=== PATIENT | male | born 1940 | race Caucasian/White ===

== ENCOUNTER → 2016-07-22 | Outpatient (CLI) | payer MEDICARE | LOC: MW.CHUR 09:42 | PROVIDERS: ATTEND Urology | DX: N40.0 Benign prostatic hyperplasia without lower urinary tract symptoms (principal); R35.1 Nocturia | CPT/HCPCS: 36415; 84153; G0463 ==

== ENCOUNTER 2017-02-12 06:55 | Day surgery (SDC) | payer MEDICARE ==
[~2017-02-12 06:55] MED LIST: Lactated Ringers 1,000 ML IV SCH; Sodium Chloride 0.9% 10 ML Syringe FLUSH PRN; Sodium Chloride 0.9% 2.5 ML Syringe FLUSH PRN; ceFAZolin 2 GM in Premix Bag 1 BAG IV ONE
[2017-02-12] MEDS ORDERED: Ondansetron 4 MG/2 ML SDV ONE (07:14)
[2017-02-12] MEDS ORDERED: fentaNYL 100 MCG/2 ML SDV ONE (07:15)
[2017-02-12] MEDS ORDERED: Propofol 200 MG/20 ML SDV ONE (07:15)
[2017-02-12] MEDS ORDERED: Midazolam 1 MG/ML 2 ML SDV ONE (07:15)
[2017-02-12] MEDS ORDERED: Ketorolac 30 MG/ML SDV ONE (07:16)
[2017-02-12] MEDS ORDERED: Dexamethasone 4 MG/ML 5 ML MDV ONE (07:16)
[2017-02-12] MEDS ORDERED: Rocuronium 10 MG/ML 10 ML Syringe ONE (07:16)
[2017-02-12] MEDS ORDERED: Bupivacaine 0.25% 10 ML SDV ONE (07:19)
[2017-02-12] MEDS ORDERED: Sugammadex Sodium 200 MG/2 ML VIAL ONE (07:24)
--- NOTE | 2017-02-12 07:36 | PCM.PREANE ---
Preanesthetic Assessment - Anesthesia/Transfusion/Family Hx Anesthesia History: Prior Anesthesia Without Reaction Family History of Anesthesia Reaction: No Transfusion History: No Prior Transfusion(s) Intubation History: Unknown - Review of Systems General: No Symptoms Pulmonary: No Symptoms Cardiovascular: No Symptoms Gastrointestinal: No Symptoms Neurological: No Symptoms Other: Reports: None - Physical Assessment Height: 1.78 m Weight: 81.193 kg ASA Class: 2 Mental Status: Alert & Oriented x3 Airway Class: Mallampati = 2 Dentition: Reports: Normal Dentition, Buchanan(s) (x2 upper front teeth) Thyro-Mental Finger Breadths: 3 Mouth Opening Finger Breadths: 3 ROM/Head Extension: Limited/Partial Lungs: Clear to Auscultation, Normal Respiratory Effort Cardiovascular: Regular Rate, Regular Rhythm - Allergies Allergies/Adverse Reactions: Allergies Allergy/AdvReac Type Severity Reaction Status Date / Time No Known Allergies Allergy Verified 02/10/17 11:08 - Blood Blood Available: No - Anesthesia Plan Pre-Op Medication Ordered: None - Acknowledgements Anesthesia Type Planned: General Anesthesia Pt an Appropriate Candidate for the Planned Anesthesia: Yes Alternatives and Risks of Anesthesia Discussed w Pt/Guardian: Yes Pt/Guardian Understands and Agrees with Anesthesia Plan: Yes PreAnesthesia Questionnaire HEENT History: Reports: Cataract, Hard of Hearing Other HEENT History: uses reading glasses, VIEJAS in left ear Cardiovascular History: Reports: High Cholesterol Respiratory History: Reports: None Gastrointestinal History: Reports: GERD, Hiatal Hernia Other Gastrointestinal History: esophageal stricture s/p dialation by Dr. Roy in [place]. No problems since. H/o bowel obstruction due to adhesions last year - laparotomy with lysis of adhesions Genitourinary History: Reports: BPH Musculoskeletal History: Reports: Other (See Below) Other Musculoskeletal History: some back spasms Neurological History: Reports: None Psychiatric History: Reports: None, Bipolar Endocrine/Metabolic History: Reports: None Hematologic History: Reports: None Immunologic History: Reports: None Oncologic (Cancer) History: Reports: None Dermatologic History: Reports: Other (See Below) Other Dermatologic History: current rash on chest - Infectious Disease History Infectious Disease History: Reports: Chicken Pox - Past Surgical History HEENT Surgical History: Reports: Cataract Surgery GI Surgical History: Reports: Hernia, Inguinal (right with mesh '98- recurrence) , Lysis of Adhesions Other GI Surgeries/Procedures: Exploratory Laparotomy for SBO, Lysis of adhesions done Neurological Surgical History: Reports: Lumbar Spine Other Neurological Surgeries/Procedures: lower back x2, last one in august- much better since - SUBSTANCE USE Smoking Status *Q: Never Smoker Second Hand Smoke Exposure: No Recreational Drug Use History: No - HOME MEDS Home Medications: Home Meds Aspirin [Adult Low Dose Aspirin EC] 81 mg PO DAILY 02/10/17 [History] Cyclobenzaprine HCl 5 mg PO TID PRN 02/10/17 [History] Multivitamin [Multiple Vitamins] 1 tab PO DAILY 02/10/17 [History] Omeprazole 40 mg PO DAILY 02/10/17 [History] Simvastatin [Zocor] 20 mg PO DAILY 02/10/17 [History] Tamsulosin HCl 0.4 mg PO DAILY 02/10/17 [History] Vardenafil HCl [Levitra] 20 mg PO DAILY PRN 02/10/17 [History] - CURRENT (IN HOUSE) MEDS Current Meds: Current Medications Lactated Ringer's (Ringers, Lactated) 1,000 mls @ 125 mls/hr IV ASDIRECTED VIKKI Last Admin: 02/12/17 07:25 Dose: 125 mls/hr Sodium Chloride (Saline Flush) 10 ml FLUSH ASDIRECTED PRN PRN Reason: Keep Vein Open Sodium Chloride (Saline Flush) 2.5 ml FLUSH ASDIRECTED PRN PRN Reason: Keep Vein Open Discontinued Medications Bupivacaine HCl (Sensorcaine-Mpf 0.25%) Confirm Administered Dose 20 ml .ROUTE .STK-MED ONE Stop: 02/12/17 07:20 Dexamethasone (Dexamethasone) Confirm Administered Dose 20 mg .ROUTE .STK-MED ONE Stop: 02/12/17 07:17 Fentanyl (Sublimaze) Confirm Administered Dose 100 mcg .ROUTE .STK-MED ONE Stop: 02/12/17 07:16 Glycopyrrolate () Confirm Administered Dose 1 mg .ROUTE .STK-MED ONE Stop: 02/12/17 07:17 Cefazolin Sodium/Dextrose 2 gm (/ Premix) 50 mls @ 100 mls/hr IV ONETIME ONE Stop: 02/09/17 09:46 Acetaminophen (Ofirmev) Confirm Administered Dose 100 mls @ as directed IV .STK- MED ONE Stop: 02/12/17 07:25 Ketorolac Tromethamine (Toradol) Confirm Administered Dose 30 mg .ROUTE .STK- MED ONE Stop: 02/12/17 07:17 Lidocaine HCl (Xylocaine-Mpf 1%) Confirm Administered Dose 5 ml .ROUTE .STK-MED ONE Stop: 02/12/17 07:17 Midazolam HCl (Versed 1 Mg/Ml) Confirm Administered Dose 2 mg .ROUTE .STK-MED ONE Stop: 02/12/17 07:16 Ondansetron HCl (Zofran) Confirm Administered Dose 4 mg .ROUTE .STK-MED ONE Stop: 02/12/17 07:15 Propofol (Diprivan 20 Ml) Confirm Administered Dose 200 mg .ROUTE .STK-MED ONE Stop: 02/12/17 07:16 Rocuronium [place] ([place]em[place]) Confirm Administered Dose 100 mg .ROUTE .STK-MED ONE Stop: 02/12/17 07:17
[2017-02-12] MEDS ORDERED: Sodium Chloride 0.9% 20 ML ONE ×2 (07:48→10:08)
[2017-02-12] MEDS ORDERED: ceFAZolin 1 GM Vial ONE ×4 (07:48→10:09)
[2017-02-12] MEDS ORDERED: ePHEDrine 50 MG/ML SDV ONE (08:46)
[2017-02-12] MEDS ORDERED: Morphine 10 MG/ML Syringe ONE (08:53)
[2017-02-12] MEDS ORDERED: fentaNYL 100 MCG/2 ML SDV IVPUSH PRN (09:30)
--- NOTE | 2017-02-12 09:32 | PCM.OPNOTE ---
- General Post-Op/Procedure Note Date of Surgery/Procedure: 02/12/17 Operative Procedure(s): Repair right recurrent inguinal hernia Findings: No evidence of a previous mesh repair. Most likely repaired primarily. Large direct and indirect inguinal hernia. Pre Op Diagnosis: Recurrent inguinal hernia Post-Op Diagnosis: Recurrent direct and indirect inguinal hernia Anesthesia Technique: General ET Tube Primary Surgeon: Dary Ramsey Condition: Good
--- NOTE | 2017-02-12 10:11 | PCM.POSTAN ---
POST ANESTHESIA ASSESSMENT - MENTAL STATUS Mental Status: Alert, Oriented - RESPIRATORY Respiratory Status: Respiratory Rate WNL, Airway Patent, O2 Saturation Stable - CARDIOVASCULAR CV Status: Pulse Rate WNL, Blood Pressure Stable - GASTROINTESTINAL GI Status: No Symptoms - PAIN Pain Score: 6 - POST OP HYDRATION Hydration Status: Adequate & Stable - OBSERVATIONS Free Text/Narrative:: no anesthesia problems
[2017-02-12] MEDS ORDERED: Acetaminophen/oxyCODONE 325-5 MG Tab PO PRN (10:30)
[2017-02-12 13:18] VITALS: BP 113/73
--- NOTE | 2017-02-12 18:20 | OR ---
SURGEON: COOKIE MELCHOR MD DATE OF PROCEDURE: 02/12/2017 PREOPERATIVE DIAGNOSIS: Recurrent right inguinal hernia. POSTOPERATIVE DIAGNOSIS: Recurrent right inguinal hernia, indirect and direct. PROCEDURE PERFORMED: Right inguinal hernia repair with mesh. PRIVACY ATTORNEY: Dr. Eamon Jacinto. ANESTHESIA: General endotracheal anesthesia. FLUIDS: See anesthesia record. ESTIMATED BLOOD LOSS: 10 mL. FINDINGS: Indirect and direct inguinal hernia. No evidence of previous mesh used. COMPLICATIONS: None. INDICATIONS: The patient is a 76-year-old male, who presents with a recurrent right inguinal hernia repair. This was previously repaired many years ago. The patient thought it was with mesh. Three months ago, the patient noticed a bulge in his groin and it is fully getting larger. A CT showed evidence of a right inguinal hernia containing small bowel. The patient and I discussed repair of this hernia. We will perform it open. We discussed the procedure expected perioperative course and risks including bleeding, infection, or damage to surrounding structures. The patient verbalized understanding and wishes to proceed. PROCEDURE IN DETAIL: The patient was brought into the operating room and placed on the OR table in supine position. A time-out was completed verifying the patient's name, age, date of , allergies, and procedure to be performed. General endotracheal anesthesia was induced. The abdomen and groin were prepped and draped in the usual standard fashion. I anesthetized the area above the inguinal ligament with 0.5% Marcaine plain. An oblique incision was made 2 fingerbreadths above the inguinal ligament. Cautery was used to dissect down to the level of the external oblique fibers. I noted scar tissue to be along this area. Using a [place] scissors, I opened the external oblique fibers down to the external ring. Flaps were then created underneath the external oblique fibers around the hernia sac and testicular vessels. This was somewhat difficult due to the previous surgery. Metzenbaum scissors were used to lyse the dense adhesions. I was able to then bluntly dissect out the hernia sac and cord structures. This was looped with a [place]. The patient was noted to have both a direct and indirect hernia. There was no evidence of previous mesh use. There were some old non- absorbable sutures along the inguinal ligament. The indirect hernia sac was dissected free of the cord structures to the level of the internal ring. It was then opened and I palpated inside the ring. No small bowel was noted within the sac. A 2-0 silk suture was used to create a pursestring suture around the base of the hernia sac and ligate it. Cautery was used to dissect the hernia sac off distally. The hernia sac was then sent to pathology. The cut end of the hernia sac was hemostatic and allowed to retract back into the abdomen. Extra-large plug and patch was brought in place. Extra-large plug was placed within the internal ring and sutured in place with 0 Ethibond suture. A mesh patch was then placed along the inguinal floor. It was sutured to the pubic tubercle medially and interrupted sutures were placed along the inguinal shelf. The superior edge of the mesh was secured to the transversalis fascia in interrupted fashion. The tails of the mesh were brought around the cord structures and secured. The defect in the mesh around the cord structures was large enough to accept just the tip of my finger. The wound was then irrigated. The external oblique fascia was closed with a running 3-0 Vicryl suture. The skin was closed with 4-0 Monocryl suture. Steri-Strips and sterile dressings were applied. The patient tolerated the procedure well and was taken to PACU in stable condition. JEREMY WEATHERS /[id number] ERIC
== END 2017-02-12 12:45 | disposition home or self-care (01) ==
LOC: MW.SDS 06:55
PROVIDERS: ATTEND Surgery
DX: K40.91 Unilateral inguinal hernia, without obstruction or gangrene, recurrent (principal); M43.17 Spondylolisthesis, lumbosacral region; D64.9 Anemia, unspecified; F31.9 Bipolar disorder, unspecified; N40.0 Benign prostatic hyperplasia without lower urinary tract symptoms; N52.9 Male erectile dysfunction, unspecified; E78.00 Pure hypercholesterolemia, unspecified; M47.26 Other spondylosis with radiculopathy, lumbar region; K21.9 Gastro-esophageal reflux disease without esophagitis; Z79.82 Long term (current) use of aspirin; Z79.899 Other long term (current) drug therapy; Z98.49 Cataract extraction status, unspecified eye; Z98.890 Other specified postprocedural states
CPT/HCPCS: 49520; A9270; C1781; C9399; J0690; J1100; J1885; J2250; J2270; J2405; J3010; J7120; 00830; 88302; J2704

== ENCOUNTER 2020-01-27 05:45 | Inpatient (IN) | payer MEDICARE, OTHER ==
[2020-01-27] MEDS ORDERED: Sodium Chloride 0.9% 2.5 ML Syringe FLUSH PRN ×2 (06:12→08:03)
[2020-01-27] MEDS ORDERED: Sodium Chloride 0.9% 10 ML Syringe FLUSH PRN (06:12)
--- NOTE | 2020-01-27 06:12 | EDM.PDOC ---
ED HPI GENERAL MEDICAL PROBLEM - General Chief Complaint: Fever Stated Complaint: AMB Time Seen by Provider: 01/27/20 05:55 - History of Present Illness INITIAL COMMENTS - FREE TEXT/NARRATIVE: History of present illness: [] Patient is usually ambulatory fairly well began to get weak and fatigued 6 days ago according to him and the . It is progressed where he takes slow shuffling steps and she says he is unsteady. For the last 4 days he has had a gradually increasing fever as high as 1027. The patient stable enough that she assist him to ambulate him because he is so weak she brought him to the emergency room today. The patient has no appetite. He is drinking plenty of fluid according to her. Does not have any change in mental status. Of note the patient has a respiratory rate of 22 and a fever on arrival but does not meet sepsis criteria because he does not have a third finding including he does not have a change in mental status. He says he had a COVID-19 test Friday which is 3 days ago which came back negative. Review of systems: As per history of present illness and below otherwise all systems reviewed and negative. Past medical history: As per history of present illness and as reviewed below otherwise noncontributory. Surgical history: As per history of present illness and as reviewed below otherwise noncontributory. Social history: No reported history of drug or alcohol abuse. Family history: As per history of present illness and as reviewed below otherwise noncontributory. Physical exam: Constitutional - well developed, well-nourished and in no acute distress HEENT - normocephalic, no evidence of trauma - external nose and mouth normal - no mass in neck and no JVD - mucosae moist EYES - full EOM, PERRL, no icterus - no evidence of inflammation, injection, or drainage Respiratory - no respiratory distress, equal bilateral expansion, lungs clear to auscultation and no abnormal lung sounds Cardiovascular - Regular Rhythm with S1 and S2 appreciated and no murmur, gallop or rub. GI - abdomen soft without distension or organomegaly - normal bowel sounds - no guard or rebound Musculoskeletal no gross deformity of long bones or joints - no tenderness, swelling or edema Neurologic - Alert and oriented times four - CN II-XII grossly intact - motor sensory and coordination symmetrically normal Psychiatric - appropriate mood and affect with normal thought content Hematologic - No petechiae or purpura - mucosa appropriate color and sclera not pale - normal nail bed color and refill Integument - no rash or evidence of trauma - normal turgor Diagnostics: [] Therapeutics: [] Impression: [] Plan: [] Definitive disposition and diagnosis as appropriate pending reevaluation and review of above. - Related Data Allergies Allergy/AdvReac Type Severity Reaction Status Date / Time No Known Allergies Allergy Verified 01/27/20 05:54 Home Meds: Home Meds Aspirin [Adult Low Dose Aspirin EC] 81 mg PO DAILY 02/10/17 [History] Cyclobenzaprine HCl 5 mg PO TID PRN 02/10/17 [History] Multivitamin [Multiple Vitamins] 1 tab PO DAILY 02/10/17 [History] Omeprazole 40 mg PO DAILY 02/10/17 [History] Simvastatin [Zocor] 20 mg PO DAILY 02/10/17 [History] Tamsulosin HCl 0.4 mg PO DAILY 02/10/17 [History] Vardenafil HCl [Levitra] 20 mg PO DAILY PRN 02/10/17 [History] Past Medical History HEENT History: Reports: Cataract Other HEENT History: uses reading glasses, [place] in left ear Cardiovascular History: Reports: High Cholesterol Respiratory History: Reports: None Gastrointestinal History: Reports: GERD Other Gastrointestinal History: Bowel obstruction Genitourinary History: Reports: BPH Musculoskeletal History: Reports: Back Pain, Chronic Other Musculoskeletal History: some back spasms Neurological History: Reports: None Psychiatric History: Reports: None, Bipolar Endocrine/Metabolic History: Reports: None Hematologic History: Reports: None Immunologic History: Reports: None Oncologic (Cancer) History: Reports: None Dermatologic History: Reports: None Other Dermatologic History: current rash on chest - Infectious Disease History Infectious Disease History: Reports: Chicken Pox - Past Surgical History Head Surgeries/Procedures: Reports: None HEENT Surgical History: Reports: Cataract Surgery, Tonsillectomy GI Surgical History: Reports: Hernia Repair/Other Neurological Surgical History: Reports: Lumbar Spine Other Neurological Surgeries/Procedures: lower back x2, last one in august- much better since Social & Family History - Family History Family Medical History: Noncontributory HEENT: Reports: Cataract Cardiac: Reports: Other (See Below) Other Cardiac Family History: valve replacement Respiratory: Reports: None GI: Reports: None : Reports: None OBGYN: Reports: Musculoskeletal: Reports: None Neurological: Reports: Parkinson's Psychiatric: Reports: None Endocrine/Metabolic: Reports: None Hematologic: Reports: None Oncologic: Reports: Colon - Tobacco Use Smoking Status *Q: Never Smoker - Recreational Drug Use Recreational Drug Use: No - Living Situation & Occupation Living situation: Reports: , with Spouse Occupation: Retired ED ROS GENERAL - Review of Systems Review Of Systems: Comprehensive ROS is negative, except as noted in HPI. ED EXAM, GENERAL - Physical Exam Exam: See Below Free Text/Narrative:: My physical exam as in the HPI EKG INTERPRETATION EKG Interpretation Comments: EKG done 01/27/2020 at 6:19 AM and being dictated at 6:57 AM. Sinus rhythm with a heart rate of 60 of 86 NE interval 147 axis -26 QT intervals 433 there are atrial premature complexes. There is left ventricular hypertrophy. This is compared to 12/18/2015 and is no significant difference. Impression no obvious injury Course - Vital Signs Text/Narrative:: 7:30 AM I discussed this case with Dr. hendrix and he agreed to admit the patient as an inpatient. Last Recorded V/S: Last Vital Signs Temp 100.6 F 01/27/20 05:55 Pulse 93 01/27/20 05:55 Resp 22 H 01/27/20 05:55 BP 147/82 H 01/27/20 07:09 Pulse Ox 93 L 01/27/20 05:55 - Orders/Labs/Meds Orders: Active Orders 24 hr Category Date Time Status EKG Documentation Completion [RC] AM Care 01/27/20 06:12 Active Abdomen 1V Flat [CR] Stat Exams 01/27/20 06:15 Taken Chest 1V Frontal [CR] Stat Exams 01/27/20 06:12 Taken CULTURE BLOOD [BC] Stat Lab 01/27/20 05:50 Received CULTURE BLOOD [BC] Stat Lab 01/27/20 06:40 Received UA W/MILAGROS RFLX IF INDICATED [URIN] Stat Lab 01/27/20 06:14 Ordered Sodium Chloride 0.9% [Saline Flush] Med 01/27/20 06:12 Active 10 ml FLUSH ASDIRECTED PRN Sodium Chloride 0.9% [Saline Flush] Med 01/27/20 06:12 Active 2.5 ml FLUSH ASDIRECTED PRN cefTRIAXone [Rocephin in Dextrose,Iso-Osm 1 GM/50 ML] 1 Med 01/27/20 07:12 Active gm Premix Bag 1 bag IV ONETIME Blood Culture x2 Reflex Set [OM.PC] Stat Oth 01/27/20 06:14 Ordered Saline Lock Insert [OM.PC] Stat Oth 01/27/20 06:12 Ordered Medication Orders Ceftriaxone Sodium/Dextrose 1 (gm/ Premix) 50 mls @ 100 mls/hr IV ONETIME ONE Stop: 01/27/20 07:41 Sodium Chloride (Saline Flush) 10 ml FLUSH ASDIRECTED PRN PRN Reason: Keep Vein Open Sodium Chloride (Saline Flush) 2.5 ml FLUSH ASDIRECTED PRN PRN Reason: Keep Vein Open Labs: Laboratory Tests 01/27/20 01/27/20 01/27/20 Range/Units 05:50 05:50 05:50 WBC 7.10 (4.0-11.0) K/uL RBC 3.67 L (4.50-5.90) M/uL Hgb 11.1 L (13.0-17.0) g/dL Hct 34.6 L (38.0-50.0) % MCV 94.3 (80.0-98.0) fL MCH 30.2 (27.0-32.0) pg MCHC 32.1 (31.0-37.0) g/dL RDW Std Deviation 48.8 (28.0-62.0) fl RDW Coeff of Gillian 14 (11.0-15.0) % Plt Count 141 L (150-400) K/uL MPV 9.50 (7.40-12.00) fL Neut % (Auto) 84.0 H (48.0-80.0) % Lymph % (Auto) 7.9 L (16.0-40.0) % [place] % (Auto) 8.0 (0.0-15.0) % Eos % (Auto) 0.0 (0.0-7.0) % Baso % (Auto) 0.1 (0.0-1.5) % Neut # (Auto) 6.0 H (1.4-5.7) K/uL Lymph # (Auto) 0.6 (0.6-2.4) K/uL [place] # (Auto) 0.6 (0.0-0.8) K/uL Eos # (Auto) 0.0 (0.0-0.7) K/uL Baso # (Auto) 0.0 (0.0-0.1) K/uL Nucleated RBC % 0.0 /100WBC Nucleated RBCs # 0 K/uL Lactate 0.9 (0.20-2.00) mmol/L Sodium 137 (136-148) mmol/L Potassium 4.1 (3.5-5.1) mmol/L Chloride 101 (98-107) mmol/L Carbon Dioxide 27.5 (21.0-32.0) mmol/L BUN 35 H (7.0-18.0) mg/dL Creatinine 1.6 H (0.8-1.3) mg/dL Est Cr Clr Drug Dosing 38.02 mL/min Estimated GFR (MDRD) 41.8 ml/min Glucose 151 H (74-106) mg/dL Calcium 8.6 (8.5-10.1) mg/dL Magnesium 2.1 (1.8-2.4) mg/dL Total Bilirubin 0.4 (0.2-1.0) mg/dL AST 34 (15-37) IU/L ALT 29 (14-63) IU/L Alkaline Phosphatase 61 (46-116) U/L Troponin I 0.053 (0.000-0.056) ng/mL Total Protein 7.0 (6.4-8.2) g/dL Albumin 3.3 L (3.4-5.0) g/dL Globulin 3.7 (2.6-4.0) g/dL Albumin/Globulin Ratio 0.9 (0.9-1.6) SARS-CoV-2 RNA (KIMBERLY) (NEGATIVE) 01/27/20 Range/Units 06:30 WBC (4.0-11.0) K/uL RBC (4.50-5.90) M/uL Hgb (13.0-17.0) g/dL Hct (38.0-50.0) % MCV (80.0-98.0) fL MCH (27.0-32.0) pg MCHC (31.0-37.0) g/dL RDW Std Deviation (28.0-62.0) fl RDW Coeff of Gillian (11.0-15.0) % Plt Count (150-400) K/uL MPV (7.40-12.00) fL Neut % (Auto) (48.0-80.0) % Lymph % (Auto) (16.0-40.0) % [place] % (Auto) (0.0-15.0) % Eos % (Auto) (0.0-7.0) % Baso % (Auto) (0.0-1.5) % Neut # (Auto) (1.4-5.7) K/uL Lymph # (Auto) (0.6-2.4) K/uL [place] # (Auto) (0.0-0.8) K/uL Eos # (Auto) (0.0-0.7) K/uL Baso # (Auto) (0.0-0.1) K/uL Nucleated RBC % /100WBC Nucleated RBCs # K/uL Lactate (0.20-2.00) mmol/L Sodium (136-148) mmol/L Potassium (3.5-5.1) mmol/L Chloride (98-107) mmol/L Carbon Dioxide (21.0-32.0) mmol/L BUN (7.0-18.0) mg/dL Creatinine (0.8-1.3) mg/dL Est Cr Clr Drug Dosing mL/min Estimated GFR (MDRD) ml/min Glucose (74-106) mg/dL Calcium (8.5-10.1) mg/dL Magnesium (1.8-2.4) mg/dL Total Bilirubin (0.2-1.0) mg/dL AST (15-37) IU/L ALT (14-63) IU/L Alkaline Phosphatase (46-116) U/L Troponin I (0.000-0.056) ng/mL Total Protein (6.4-8.2) g/dL Albumin (3.4-5.0) g/dL Globulin (2.6-4.0) g/dL Albumin/Globulin Ratio (0.9-1.6) SARS-CoV-2 RNA (KIMBERLY) NEGATIVE (NEGATIVE) Meds: Medications Generic Name Dose Route Start Last Admin Trade Name Freq PRN Reason Stop Dose Admin Ceftriaxone Sodium/Dextrose 1 50 mls @ 100 mls/hr 01/27/20 07:12 gm/ Premix IV 01/27/20 07:41 ONETIME ONE Sodium Chloride 10 ml 01/27/20 06:12 Saline Flush FLUSH ASDIRECTED PRN Keep Vein Open Sodium Chloride 2.5 ml 01/27/20 06:12 Saline Flush FLUSH ASDIRECTED PRN Keep Vein Open Departure - Departure Time of Disposition: 07:32 Disposition: Admitted As Inpatient 65 Condition: Good Clinical Impression: Right lower lobe pneumonia, Fatigue, Weakness - Discharge Information Referrals: Cristian Zavaleta MD [Primary Care Provider] - Forms: ED Department Discharge Sepsis Event Note (ED) - Evaluation Sepsis Screening Result: No Definite Risk - Focused Exam Vital Signs: Vital Signs Temp Pulse Resp BP Pulse Ox 01/27/20 07:09 147/82 H 01/27/20 06:39 156/83 H 01/27/20 05:55 100.6 F 93 22 H 162/75 H 93 L - My Orders Last 24 Hours: My Active Orders 01/27/20 05:50 CULTURE BLOOD [BC] Stat 01/27/20 06:12 EKG Documentation Completion [RC] AM Chest 1V Frontal [CR] Stat Sodium Chloride 0.9% [Saline Flush] 10 ml FLUSH ASDIRECTED PRN Sodium Chloride 0.9% [Saline Flush] 2.5 ml FLUSH ASDIRECTED PRN Saline Lock Insert [OM.PC] Stat 01/27/20 06:14 UA W/MILAGROS RFLX IF INDICATED [URIN] Stat Blood Culture x2 Reflex Set [OM.PC] Stat 01/27/20 06:15 Abdomen 1V Flat [CR] Stat 01/27/20 06:40 CULTURE BLOOD [BC] Stat 01/27/20 07:12 cefTRIAXone [Rocephin in Dextrose,Iso-Osm 1 GM/50 ML] 1 gm Premix Bag 1 bag IV ONETIME - Assessment/Plan Last 24 Hours: My Active Orders 01/27/20 05:50 CULTURE BLOOD [BC] Stat 01/27/20 06:12 EKG Documentation Completion [RC] AM Chest 1V Frontal [CR] Stat Sodium Chloride 0.9% [Saline Flush] 10 ml FLUSH ASDIRECTED PRN Sodium Chloride 0.9% [Saline Flush] 2.5 ml FLUSH ASDIRECTED PRN Saline Lock Insert [OM.PC] Stat 01/27/20 06:14 UA W/MILAGROS RFLX IF INDICATED [URIN] Stat Blood Culture x2 Reflex Set [OM.PC] Stat 01/27/20 06:15 Abdomen 1V Flat [CR] Stat 01/27/20 06:40 CULTURE BLOOD [BC] Stat 01/27/20 07:12 cefTRIAXone [Rocephin in Dextrose,Iso-Osm 1 GM/50 ML] 1 gm Premix Bag 1 bag IV ONETIME
[2020-01-27 06:44] LABS: CARBON DIOXIDE,CO2 27.5 mmol/L (21.0-32.0); POTASSIUM,K 4.1 mmol/L (3.5-5.1)
[2020-01-27] MEDS ORDERED: cefTRIAXone 1 GM in Premix Bag 1 BAG IV ONE (07:12)
--- NOTE | 2020-01-27 07:37 | CR ---
Indication: Fever Technique: Chest 1 view Comparison: None Findings/Impression: Cardiovascular and mediastinum: Heart size and vasculature are normal in caliber and appearance. Lungs and pleural space: There is elevation of the right diaphragm with adjacent linear opacities in the right lung base. These linear opacities could represent chronic compressive atelectasis. However, it is difficult to exclude pneumonia in this location. Remainder of the lungs and pleural spaces are clear. No pneumothorax. Bones and soft tissues: No acute findings. Dictated by Pramod Heaton MD @ Jan 27 2020 7:30AM Signed by Dr. Pramod Heaton @ Jan 27 2020 7:36AM
--- NOTE | 2020-01-27 07:42 | CR ---
Indication: Abdominal distention. History of small-bowel obstruction. Technique: Abdomen 3 view Comparison: December 18, 2015 Findings/Impression: Bowel: Moderate amount of stool in the distal colon. Minimal gaseous distention of the remainder of the colon. Few central small bowel loops are minimally distended with air. No ezekiel obstructive pattern. Soft tissues: No sign of free air. No sign of soft tissue mass. No suspicious calcifications. Bones: Unremarkable for age. Dictated by Pramod Heaton MD @ Jan 27 2020 7:36AM Signed by Dr. Pramod Heaton @ Jan 27 2020 7:39AM
[2020-01-27] MEDS ORDERED: Ondansetron 4 MG/2 ML SDV IVPUSH PRN (08:03)
[2020-01-27] MEDS ORDERED: Docusate Sodium 100 MG Cap PO PRN (08:03)
--- NOTE | 2020-01-27 08:06 | PCM.HP.2 ---
H&P History of Present Illness - General Date of Service: 01/27/20 Admit Problem/Dx: Admission Diagnosis/Problem Admission Diagnosis/Problem Right lower lobe pneumonia Source of Information: Patient History Limitations: Reports: No Limitations - History of Present Illness Initial Comments - Free Text/Narative: This 79-year-old male with PMH of HLD, ataxia, BPH presented to the ED with concerns of fever chills and weakness that started last Friday. He reports that he went in and saw his primary care Dr. Zavaleta on Friday and was tested for COVID. And given hydroxychloroquine as preventative disease. COVID testing came back negative. But he continued to have fevers chills and weakness continued to progress. He has poor appetite and feels dehydrated. He reports he is having constipation no diarrhea or black or bloody bowel movements. Reports that urinary frequency has increased to 3-4 times overnight. He denies any burning with urination or any rectal pain or pressure. He denies chest pain or shortness of breath no cough. He denies any abdominal pain. No focal neurological deficits. He denies any tobacco use recreational drug use or alcohol use. He reports that he just saw Dr. Wilson for BPH follow-up and everything was normal at that time. In the ER no leukocytosis was noted hemoglobin 11.1 platelet count 141,000, slight AK I noted with BUN 35 CR 1.6, which is elevated from baseline. X-ray showed possible linear atelectasis or opacities concerning for possible pneumonia abdominal x-ray shows increased stool in mild distention of the colon. No obvious bowel obstruction. He was treated with Rocephin. Vital signs in ER were noted for some tachypnea mild elevation in temperature 100.6 F. He will be admitted inpatient for CAP. PCP Dr. Zavaleta 0 Pain Score (Numeric/FACES): 0 - Related Data Allergies/Adverse Reactions: Allergies Allergy/AdvReac Type Severity Reaction Status Date / Time No Known Allergies Allergy Verified 01/27/20 08:55 Home Medications: Home Meds Aspirin [Adult Low Dose Aspirin EC] 81 mg PO DAILY 02/10/17 [History] Multivitamin [Multiple Vitamins] 1 tab PO DAILY 02/10/17 [History] Omeprazole 40 mg PO DAILY 02/10/17 [History] Simvastatin [Zocor] 20 mg PO BEDTIME 02/10/17 [History] Hydroxychloroquine [Plaquenil] 200 mg PO BID 01/27/20 [History] Past Medical History HEENT History: Reports: Cataract Other HEENT History: uses reading glasses, [place] in left ear Cardiovascular History: Reports: High Cholesterol Respiratory History: Reports: None Gastrointestinal History: Reports: GERD Other Gastrointestinal History: Bowel obstruction Genitourinary History: Reports: BPH Musculoskeletal History: Reports: Back Pain, Chronic Other Musculoskeletal History: some back spasms Neurological History: Reports: None Psychiatric History: Reports: None, Bipolar Endocrine/Metabolic History: Reports: None Hematologic History: Reports: None Immunologic History: Reports: None Oncologic (Cancer) History: Reports: None Dermatologic History: Reports: None Other Dermatologic History: current rash on chest - Infectious Disease History Infectious Disease History: Reports: Chicken Pox - Past Surgical History Head Surgeries/Procedures: Reports: None HEENT Surgical History: Reports: Cataract Surgery, Tonsillectomy GI Surgical History: Reports: Hernia Repair/Other Neurological Surgical History: Reports: Lumbar Spine Other Neurological Surgeries/Procedures: lower back x2, last one in august- much b nithya since Social & Family History - Family History Family Medical History: Noncontributory HEENT: Reports: Cataract Cardiac: Reports: Other (See Below) Other Cardiac Family History: valve replacement Respiratory: Reports: None GI: Reports: None : Reports: None OBGYN: Reports: Musculoskeletal: Reports: None Neurological: Reports: Parkinson's Psychiatric: Reports: None Endocrine/Metabolic: Reports: None Hematologic: Reports: None Oncologic: Reports: Colon - Tobacco Use Smoking Status *Q: Never Smoker - Recreational Drug Use Recreational Drug Use: No - Living Situation & Occupation Living situation: Reports: , with Spouse Occupation: Retired H&P Review of Systems - Review of Systems: Review Of Systems: See Below General: Reports: Fever, Chills, Malaise, Weakness, Fatigue, Decreased Appetite HEENT: Reports: No Symptoms. Denies: Headaches, Sinus Congestion, Visual Changes Pulmonary: Reports: No Symptoms. Denies: Shortness of Breath, Wheezing, Cough Cardiovascular: Reports: No Symptoms. Denies: Chest Pain, Dyspnea on Exertion, Syncope Gastrointestinal: Reports: Constipation. Denies: Abdominal Pain Genitourinary: Reports: Frequency, Urgency. Denies: Dysuria Musculoskeletal: Reports: No Symptoms Skin: Reports: No Symptoms Psychiatric: Reports: No Symptoms Neurological: Reports: No Symptoms Hematologic/Lymphatic: Reports: No Symptoms Immunologic: Reports: No Symptoms Exam - Exam Exam: See Below - Vital Signs Vital Signs: Last Vital Signs Temp 99.9 F 01/27/20 07:40 Pulse 83 01/27/20 07:40 Resp 20 01/27/20 07:40 BP 167/81 H 01/27/20 07:40 Pulse Ox 94 L 01/27/20 07:40 Weight: 73.482 kg - Exam General: Alert, Oriented, Cooperative, Other (appears flushed in cheeks and shivering) HEENT: Conjunctiva Clear, Posterior Pharynx Clear. No: Mucosa Moist & [place] (dry) Lungs: Clear to Auscultation, Normal Respiratory Effort Cardiovascular: Regular Rate, Regular Rhythm, Normal S1, Normal S2 GI/Abdominal Exam: Normal Bowel Sounds, Soft, Non-Tender Extremities: Normal Inspection, Normal Range of Motion, Non-Tender, No Pedal Edema Neuro Extensive - Mental Status: Alert, Oriented x3 Neuro Extensive - Motor, Sensory, Reflexes: CN II-XII Intact Psychiatric: Alert, Normal Affect, Normal Mood - Patient Data Lab Results Last 24 hrs: Laboratory Results - last 24 hr 01/27/20 01/27/20 01/27/20 Range/Units 05:50 05:50 05:50 WBC 7.10 (4.0-11.0) K/uL RBC 3.67 L (4.50-5.90) M/uL Hgb 11.1 L (13.0-17.0) g/dL Hct 34.6 L (38.0-50.0) % MCV 94.3 (80.0-98.0) fL MCH 30.2 (27.0-32.0) pg MCHC 32.1 (31.0-37.0) g/dL RDW Std Deviation 48.8 (28.0-62.0) fl RDW Coeff of Gillian 14 (11.0-15.0) % Plt Count 141 L (150-400) K/uL MPV 9.50 (7.40-12.00) fL Neut % (Auto) 84.0 H (48.0-80.0) % Lymph % (Auto) 7.9 L (16.0-40.0) % [place] % (Auto) 8.0 (0.0-15.0) % Eos % (Auto) 0.0 (0.0-7.0) % Baso % (Auto) 0.1 (0.0-1.5) % Neut # (Auto) 6.0 H (1.4-5.7) K/uL Lymph # (Auto) 0.6 (0.6-2.4) K/uL [place] # (Auto) 0.6 (0.0-0.8) K/uL Eos # (Auto) 0.0 (0.0-0.7) K/uL Baso # (Auto) 0.0 (0.0-0.1) K/uL Nucleated RBC % 0.0 /100WBC Nucleated RBCs # 0 K/uL Lactate 0.9 (0.20-2.00) mmol/L Sodium 137 (136-148) mmol/L Potassium 4.1 (3.5-5.1) mmol/L Chloride 101 (98-107) mmol/L Carbon Dioxide 27.5 (21.0-32.0) mmol/L BUN 35 H (7.0-18.0) mg/dL Creatinine 1.6 H (0.8-1.3) mg/dL Est Cr Clr Drug Dosing 38.02 mL/min Estimated GFR (MDRD) 41.8 ml/min Glucose 151 H (74-106) mg/dL Calcium 8.6 (8.5-10.1) mg/dL Magnesium 2.1 (1.8-2.4) mg/dL Total Bilirubin 0.4 (0.2-1.0) mg/dL AST 34 (15-37) IU/L ALT 29 (14-63) IU/L Alkaline Phosphatase 61 (46-116) U/L Troponin I 0.053 (0.000-0.056) ng/mL Total Protein 7.0 (6.4-8.2) g/dL Albumin 3.3 L (3.4-5.0) g/dL Globulin 3.7 (2.6-4.0) g/dL Albumin/Globulin Ratio 0.9 (0.9-1.6) SARS-CoV-2 RNA (KIMBERLY) (NEGATIVE) 01/27/20 Range/Units 06:30 WBC (4.0-11.0) K/uL RBC (4.50-5.90) M/uL Hgb (13.0-17.0) g/dL Hct (38.0-50.0) % MCV (80.0-98.0) fL MCH (27.0-32.0) pg MCHC (31.0-37.0) g/dL RDW Std Deviation (28.0-62.0) fl RDW Coeff of Gillian (11.0-15.0) % Plt Count (150-400) K/uL MPV (7.40-12.00) fL Neut % (Auto) (48.0-80.0) % Lymph % (Auto) (16.0-40.0) % [place] % (Auto) (0.0-15.0) % Eos % (Auto) (0.0-7.0) % Baso % (Auto) (0.0-1.5) % Neut # (Auto) (1.4-5.7) K/uL Lymph # (Auto) (0.6-2.4) K/uL [place] # (Auto) (0.0-0.8) K/uL Eos # (Auto) (0.0-0.7) K/uL Baso # (Auto) (0.0-0.1) K/uL Nucleated RBC % /100WBC Nucleated RBCs # K/uL Lactate (0.20-2.00) mmol/L Sodium (136-148) mmol/L Potassium (3.5-5.1) mmol/L Chloride (98-107) mmol/L Carbon Dioxide (21.0-32.0) mmol/L BUN (7.0-18.0) mg/dL Creatinine (0.8-1.3) mg/dL Est Cr Clr Drug Dosing mL/min Estimated GFR (MDRD) ml/min Glucose (74-106) mg/dL Calcium (8.5-10.1) mg/dL Magnesium (1.8-2.4) mg/dL Total Bilirubin (0.2-1.0) mg/dL AST (15-37) IU/L ALT (14-63) IU/L Alkaline Phosphatase (46-116) U/L Troponin I (0.000-0.056) ng/mL Total Protein (6.4-8.2) g/dL Albumin (3.4-5.0) g/dL Globulin (2.6-4.0) g/dL Albumin/Globulin Ratio (0.9-1.6) SARS-CoV-2 RNA (KIM[place]) NEGATIVE (NEGATIVE) Result Diagrams: 01/27/20 05:50 01/27/20 05:50 Sepsis Event Note - Evaluation Sepsis Screening Result: No Definite Risk - Focused Exam Vital Signs: Vital Signs Temp Pulse Resp BP Pulse Ox 01/27/20 07:40 99.9 F 83 20 167/81 H 94 L 01/27/20 07:09 147/82 H 01/27/20 06:39 156/83 H 01/27/20 05:55 100.6 F 93 22 H 162/75 H 93 L - Problem List (1) BPH (benign prostatic hyperplasia) SNOMED Code(s): 192873721 ICD Code: N40.0 - BENIGN PROSTATIC HYPERPLASIA WITHOUT LOWER URINRY TRACT SYMP Status: Acute Current Visit: Yes (2) Acute prostatitis SNOMED Code(s): 58858485 ICD Code: N41.0 - ACUTE PROSTATITIS Status: Suspected Current Visit: Yes (3) Right lower lobe pneumonia SNOMED Code(s): 128708566 ICD Code: J18.9 - PNEUMONIA, UNSPECIFIED ORGANISM Status: Acute Current Visit: Yes (4) Weakness SNOMED Code(s): 08164436 ICD Code: R53.1 - WEAKNESS Status: Acute Current Visit: Yes (5) Chronic back pain SNOMED Code(s): 101846738 ICD Code: M54.9 - DORSALGIA, UNSPECIFIED; G89.29 - OTHER CHRONIC PAIN Status: Chronic Current Visit: No Qualifiers: Back pain location: back pain in unspecified location Back pain laterality: unspecified Qualified Code(s): M54.9 - Dorsalgia, unspecified; G89.29 - Other chronic pain (6) GERD (gastroesophageal reflux disease) SNOMED Code(s): 582030865 ICD Code: K21.9 - GASTRO-ESOPHAGEAL REFLUX DISEASE WITHOUT ESOPHAGITIS Status: Chronic Current Visit: No Problem List Initiated/Reviewed/Updated: Yes Orders Last 24hrs: Active Orders 24 hr Category Date Time Status Admission Status [Patient Status] [ADT] Stat ADT 01/27/20 07:30 Active Intake and Output [RC] QSHIFT Care 01/27/20 08:03 Ordered Oxygen Therapy [RC] PRN Care 01/27/20 08:03 Ordered Up With Assistance [RC] ASDIRECTED Care 01/27/20 08:03 Ordered VTE/DVT Education [RC] PER UNIT ROUTINE Care 01/27/20 08:03 Ordered Vital Signs [RC] Q4H Care 01/27/20 08:03 Ordered BASIC METABOLIC PANEL,BMP [CHEM] AM Lab 01/28/20 05:11 Ordered BASIC METABOLIC PANEL,BMP [CHEM] AM Lab 01/29/20 05:11 Ordered BASIC METABOLIC PANEL,BMP [CHEM] AM Lab 01/30/20 05:11 Ordered CBC WITH AUTO DIFF [HEME] AM Lab 01/28/20 05:11 Ordered CBC WITH AUTO DIFF [HEME] AM Lab 01/29/20 05:11 Ordered CBC WITH AUTO DIFF [HEME] AM Lab 01/30/20 05:11 Ordered CULTURE BLOOD [BC] Stat Lab 01/27/20 05:50 Received CULTURE BLOOD [BC] Stat Lab 01/27/20 06:40 Received MAGNESIUM [CHEM] AM Lab 01/28/20 05:11 Ordered MAGNESIUM [CHEM] AM Lab 01/29/20 05:11 Ordered MAGNESIUM [CHEM] AM Lab 01/30/20 05:11 Ordered UA W/MILAGROS RFLX IF INDICATED [URIN] Stat Lab 01/27/20 06:14 Ordered Acetaminophen [TylenoL] Med 01/27/20 08:03 Ordered 650 mg PO Q4H PRN Azithromycin [Zithromax] Med 01/28/20 08:15 Ordered 500 mg PO Q24H Azithromycin [Zithromax] 500 mg Med 01/27/20 08:15 Ordered Sodium Chloride 0.9% [Normal Saline (AdvBag)] 250 ml IV ONETIME Docusate Sodium [Colace] Med 01/27/20 08:03 Ordered 100 mg PO BID PRN Heparin Sodium Med 01/27/20 08:15 Ordered 5,000 units SUBCUT Q8H Ondansetron [Zofran] Med 01/27/20 08:03 Ordered 4 mg IVPUSH Q4H PRN Sodium Chloride 0.9% [Normal Saline] 1,000 ml Med 01/27/20 08:15 Ordered IV Q10H Sodium Chloride 0.9% [Saline Flush] Med 01/27/20 06:12 Stop Req 10 ml FLUSH ASDIRECTED PRN Sodium Chloride 0.9% [Saline Flush] Med 01/27/20 06:12 Stop Req 2.5 ml FLUSH ASDIRECTED PRN Sodium Chloride 0.9% [Saline Flush] Med 01/27/20 08:03 Ordered 2.5 ml FLUSH ASDIRECTED PRN cefTRIAXone [Rocephin in Dextrose,Iso-Osm 1 GM/50 ML] 1 Med 01/28/20 07:00 Ordered gm Premix Bag 1 bag IV Q24H Blood Culture x2 Reflex Set [OM.PC] Stat Oth 01/27/20 06:14 Ordered Saline Lock Insert [OM.PC] Routine Oth 01/27/20 08:03 Ordered Medication Orders Acetaminophen (Tylenol) 650 mg PO Q4H PRN PRN Reason: Pain (Mild 1-3)/fever Azithromycin (Zithromax) 500 mg PO Q24H VIKKI Docusate Sodium (Colace) 100 mg PO BID PRN PRN Reason: Constipation Heparin Sodium (Porcine) (Heparin Sodium) 5,000 units SUBCUT Q8H VIKKI Azithromycin 500 mg/ Sodium (Chloride) 250 mls @ 250 mls/hr IV ONETIME VIKKI Sodium Chloride (Normal Saline) 1,000 mls @ 100 mls/hr IV Q10H VIKKI Ceftriaxone Sodium/Dextrose 1 (gm/ Premix) 50 mls @ 100 mls/hr IV Q24H VIKKI Ondansetron HCl (Zofran) 4 mg IVPUSH Q4H PRN PRN Reason: Nausea Sodium Chloride (Saline Flush) 2.5 ml FLUSH ASDIRECTED PRN PRN Reason: Keep Vein Open Assessment/Plan Comment:: This 79-year-old male admitted with CAP and possible acute prostatitis 1. CAP - We will change antibiotics to Levaquin IV - Start IV fluids normal saline at 100 mls/hr - Blood cultures are pending - Encourage IS - Oxygen PRN - CT Chest obtained which revealed R lobe pneumonia, continue Levaquin. - Abdominal CT negative, mildly enlarged prostate. Head CT obtained due to tremors on transfer to CT. He remained conscious so unlikely seizure activity. Has history of ataxia. 2. KRISTIN - IV fluids and monitor renal function in a.m. - Avoid nephrotoxic medications - [place] placed in ED due to inability to urinate. VTE prophylaxis: Heparin CODE STATUS: Full code Dispo: 2 to 3 days
[2020-01-27] MEDS ORDERED: Azithromycin 500 MG in Sodium Chloride 0.9% 250 ML IV SCH (08:15)
[2020-01-27] MEDS ORDERED: FLU Vacc QV2020-21(65YR UP)/PF 240 MCG/0.7 ML Syringe IM ONE (09:00)
[2020-01-27] MEDS: Sodium Chloride 0.9% 1,000 ML IV SCH ×2 (09:12→23:37)
[2020-01-27] MEDS: Levofloxacin/Dextrose 5%-Water 750 MG in Premix Bag 1 BAG IV SCH (09:21)
[2020-01-27] MEDS: Heparin Sodium 5,000 Units/ML Vial SUBCUT SCH ×3 (09:23→23:37)
[2020-01-27] MEDS ORDERED: Bisacodyl 10 MG Supp RECTAL ONE (12:28)
--- NOTE | 2020-01-27 12:51 | CT ---
INDICATION: Tremors appearance abnormal motor findings. Possible seizure COMPARISON: None TECHNIQUE: CT examination of the head was performed as axial sections without intravenous contrast. Images were obtained from the vertex of the skull through the skull base. Please note that all CT scans at this facility use dose modulation, iterative reconstruction, and/or weight-based dosing when appropriate to reduce radiation dose to as low as reasonably achievable. FINDINGS: The brain shows no sign of mass lesion, mass effect, hemorrhage, or edema. There are involutional changes. There is moderate cortical atrophy and there is moderate white matter disease. There is no hydrocephalus. The visualized portions of the orbits are normal in appearance. The osseous structures are normal in appearance with no sign of abnormality in the skull base or calvarium. IMPRESSION: Involutional changes. No acute-appearing findings. Please note that all CT scans at this facility use dose modulation, iterative reconstruction, and/or weight-based dosing when appropriate to reduce radiation dose to as low as reasonably achievable. Dictated by Sami Mojica MD @ Jan 27 2020 12:48PM Signed by Dr. Sami Mojica @ Jan 27 2020 12:50PM
--- NOTE | 2020-01-27 13:00 | CT ---
INDICATION: Fever COMPARISON: No prior chest abdomen or pelvis CTs available for comparison TECHNIQUE: CT examination of the chest, abdomen and pelvis was performed without intravenous contrast. Thin section axial images were obtained from the thoracic inlet through the pubic symphysis. Oral contrast was not administered. Sagittal and coronal reformat image was performed Please note that all CT scans at this facility use dose modulation, iterative reconstruction, and/or weight-based dosing when appropriate to reduce radiation dose to as low as reasonably achievable. TECHNICAL NOTE: LIMITED DUE TO MOTION AND LACK OF CONTRAST. FINDINGS: CHEST: The heart size is top normal. There are atherosclerotic vascular calcifications and valvular calcifications. No visible adenopathy or significant pericardial effusion. Large hiatal hernia. Consolidation of the medial segment of the right middle lobe consistent with pneumonia. Minimal opacities at both posterior bases likely atelectasis. Trace right pleural fluid. No pneumothorax. ABDOMEN AND PELVIS: LIVER/BILIARY SYSTEM:Limited evaluation but no solid-appearing mass or biliary ductal dilatation. 1 centimeters cyst in the left lobe. Normal appearing gallbladder. ADRENALS: No definite focal mass KIDNEYS, URETERS and BLADDER:Bilateral and symmetric perinephric stranding. No visible mass, calculus, hydronephrosis or bladder abnormality. The stranding is likely chronic. SPLEEN:Normal non-contrast appearance. PANCREAS: Markedly atrophic RETROPERITONEUM and MESENTERY: There is no mass, adenopathy or aortic aneurysm. Atherosclerosis. GASTROINTESTINAL SYSTEM: There is no evidence of diverticulitis, colitis, mechanical obstruction, or appendicitis. The small bowel as visualized appears normal.Significant fecal retention without mechanical obstruction, specially rectosigmoid. Small bowel appears normal. No visible acute inflammatory process of bowel. PELVIS: No visible free fluid or adenopathy. Enlarged prostate. OSSEOUS STRUCTURES and ABDOMINAL WALL: Demineralization and degenerative change without fracture or destructive process. Small fat containing left inguinal hernia. OTHER: No free fluid or free air. IMPRESSION: 1. CHEST: Right middle lobe pneumonia. 2. ABDOMEN AND PELVIS: Limited examination but no acute finding that would explain fever. Urine incidental findings regarding the abdomen and pelvis as discussed in the body of the report. Please note that all CT scans at this facility use dose modulation, iterative reconstruction, and/or weight-based dosing when appropriate to reduce radiation dose to as low as reasonably achievable. Dictated by Sami Mojica MD @ Jan 27 2020 12:58PM Signed by Dr. Sami Mojica @ Jan 27 2020 12:59PM
[2020-01-27] MEDS: Acetaminophen 325 MG Tab PO PRN (21:17)
[2020-01-28] MEDS: Acetaminophen 325 MG Tab PO PRN (06:09)
[2020-01-28] MEDS: Sodium Chloride 0.9% 1,000 ML IV SCH ×2 (06:09→11:51)
[2020-01-28 06:33] LABS: CARBON DIOXIDE,CO2 25.3 mmol/L (21.0-32.0)
[2020-01-28] MEDS ORDERED: cefTRIAXone 1 GM in Premix Bag 1 BAG IV SCH (07:00)
[2020-01-28] MEDS ORDERED: Azithromycin 250 MG Tab PO SCH (08:15)
[2020-01-28] MEDS ORDERED: Bisacodyl 10 MG Supp RECTAL PRN (08:36)
[2020-01-28] MEDS: Heparin Sodium 5,000 Units/ML Vial SUBCUT SCH ×2 (08:59→17:05)
--- NOTE | 2020-01-28 13:43 | PCM.PN ---
- General Info Date of Service: 01/28/20 Admission Dx/Problem (Free Text): Admission Diagnosis/Problem Admission Diagnosis/Problem Right lower lobe pneumonia Subjective Update: Feeling better today, still having fevers. But overall improved. No chest pain no cough or sputum production. Eating well and up sitting chair for breakfast. Functional Status: Reports: Pain Controlled, Tolerating Diet, Ambulating, Urinating - Review of Systems General: Reports: No Symptoms. Denies: Weakness, Fatigue HEENT: Reports: No Symptoms Cardiovascular: Reports: No Symptoms. Denies: Chest Pain Gastrointestinal: Reports: No Symptoms. Denies: Abdominal Pain, Nausea, Vomiting Genitourinary: Reports: No Symptoms. Denies: Dysuria, Frequency Musculoskeletal: Reports: No Symptoms Skin: Reports: No Symptoms Neurological: Reports: No Symptoms Psychiatric: Reports: No Symptoms - Patient Data Vitals - Most Recent: Last Vital Signs Temp 97.6 F 01/28/20 08:58 Pulse 69 01/28/20 08:58 Resp 14 01/28/20 08:58 BP 120/60 01/28/20 08:58 Pulse Ox 96 01/28/20 08:58 Weight - Most Recent: 73.482 kg I&O - Last 24 Hours: Intake & Output 01/27/20 01/28/20 01/28/20 22:59 06:59 14:59 Intake Total 750 Output Total 650 Balance 100 Lab Results Last 24 Hours: Laboratory Results - last 24 hr 01/28/20 01/28/20 01/28/20 Range/Units 05:25 05:25 09:35 WBC 7.82 (4.0-11.0) K/uL RBC 3.66 L (4.50-5.90) M/uL Hgb 10.9 L (13.0-17.0) g/dL Hct 34.0 L (38.0-50.0) % MCV 92.9 (80.0-98.0) fL MCH 29.8 (27.0-32.0) pg MCHC 32.1 (31.0-37.0) g/dL RDW Std Deviation 48.4 (28.0-62.0) fl RDW Coeff of Gillian 14 (11.0-15.0) % Plt Count 144 L (150-400) K/uL MPV 10.30 (7.40-12.00) fL Neut % (Auto) 80.4 H (48.0-80.0) % Lymph % (Auto) 7.5 L (16.0-40.0) % Lee % (Auto) 12.0 (0.0-15.0) % Eos % (Auto) 0.0 (0.0-7.0) % Baso % (Auto) 0.1 (0.0-1.5) % Neut # (Auto) 6.3 H (1.4-5.7) K/uL Lymph # (Auto) 0.6 (0.6-2.4) K/uL Lee # (Auto) 0.9 H (0.0-0.8) K/uL Eos # (Auto) 0.0 (0.0-0.7) K/uL Baso # (Auto) 0.0 (0.0-0.1) K/uL Nucleated RBC % 0.0 /100WBC Nucleated RBCs # 0 K/uL Sodium 135 L (136-148) mmol/L Potassium 4.0 (3.5-5.1) mmol/L Chloride 101 (98-107) mmol/L Carbon Dioxide 25.3 (21.0-32.0) mmol/L BUN 26 H (7.0-18.0) mg/dL Creatinine 1.3 (0.8-1.3) mg/dL Est Cr Clr Drug Dosing 46.79 mL/min Estimated GFR (MDRD) 53.1 ml/min Glucose 122 H (74-106) mg/dL Calcium 8.3 L (8.5-10.1) mg/dL Magnesium 1.9 (1.8-2.4) mg/dL SARS-CoV-2 RNA (KIMBERLY) NEGATIVE (NEGATIVE) Kel Results Last 24 Hours: Microbiology 01/27/20 06:40 Aerobic Blood Culture - Preliminary Blood - Venous - Lab Draw NO GROWTH AFTER 1 DAY Anaerobic Blood Culture - Preliminary NO GROWTH AFTER 1 DAY 01/27/20 05:50 Aerobic Blood Culture - Preliminary Blood - Venous NO GROWTH AFTER 1 DAY Anaerobic Blood Culture - Preliminary NO GROWTH AFTER 1 DAY Med Orders - Current: Current Medications Acetaminophen (Tylenol) 650 mg PO Q4H PRN PRN Reason: Pain (Mild 1-3)/fever Last Admin: 01/28/20 06:09 Dose: 650 mg Documented by: Bisacodyl (Dulcolax) 10 mg RECTAL DAILY PRN PRN Reason: Constipation Docusate Sodium (Colace) 100 mg PO BID PRN PRN Reason: Constipation Heparin Sodium (Porcine) (Heparin Sodium) 5,000 units SUBCUT Q8H [facility] Last Admin: 01/28/20 08:59 Dose: 5,000 units Documented by: Sodium Chloride (Normal Saline) 1,000 mls @ 100 mls/hr IV Q10H [facility] Last Admin: 01/28/20 11:51 Dose: 100 mls/hr Documented by: Levofloxacin/Dextrose 750 mg/ (Premix) 150 mls @ 100 mls/hr IV Q48H [facility] Last Admin: 01/27/20 09:21 Dose: 100 mls/hr Documented by: Ondansetron HCl (Zofran) 4 mg IVPUSH Q4H PRN PRN Reason: Nausea Sodium Chloride (Saline Flush) 2.5 ml FLUSH ASDIRECTED PRN PRN Reason: Keep Vein Open Last Admin: 01/27/20 22:18 Dose: 2.5 ml Documented by: Discontinued Medications Azithromycin (Zithromax) 500 mg PO Q24H [facility] Bisacodyl (Dulcolax) 10 mg RECTAL ONETIME ONE Stop: 01/27/20 12:29 Last Admin: 01/27/20 16:51 Dose: 10 mg Documented by: Ceftriaxone Sodium/Dextrose 1 (gm/ Premix) 50 mls @ 100 mls/hr IV ONETIME ONE Stop: 01/27/20 07:41 Last Admin: 01/27/20 07:40 Dose: 100 mls/hr Documented by: Azithromycin 500 mg/ Sodium (Chloride) 250 mls @ 250 mls/hr IV ONETIME [facility] Ceftriaxone Sodium/Dextrose 1 (gm/ Premix) 50 mls @ 100 mls/hr IV Q24H [facility] Influenza Virus Vaccine (Fluzone High-Dose Quad ) 240 mcg IM .ONCE ONE Stop: 01/27/20 09:01 Sodium Chloride (Saline Flush) 10 ml FLUSH ASDIRECTED PRN PRN Reason: Keep Vein Open Last Admin: 01/27/20 07:40 Dose: 10 ml Documented by: Sodium Chloride (Saline Flush) 2.5 ml FLUSH ASDIRECTED PRN PRN Reason: Keep Vein Open Last Admin: 01/27/20 07:40 Dose: 2.5 ml Documented by: - Exam Quality Assessment: DVT Prophylaxis. No: Supplemental Oxygen General: Alert, Oriented, Cooperative Lungs: Normal Respiratory Effort, Crackles (mild crackles RLL) Cardiovascular: Regular Rate, Regular Rhythm GI/Abdominal Exam: Normal Bowel Sounds, Soft, Non-Tender Back Exam: Normal Inspection, Full Range of Motion Extremities: Normal Inspection, Normal Range of Motion, Non-Tender, No Pedal Edema Neurological: No New Focal Deficit Psy/Mental Status: Alert, Normal Affect, Normal Mood Sepsis Event Note - Evaluation Sepsis Screening Result: Sepsis Risk - Focused Exam Vital Signs: Vital Signs Temp Pulse Resp BP Pulse Ox 01/28/20 08:58 97.6 F 69 14 120/60 96 01/28/20 06:09 101.8 F H 01/28/20 04:21 100.5 F 82 18 154/80 H 93 L - Problem List & Annotations (1) BPH (benign prostatic hyperplasia) SNOMED Code(s): 747832992 Code(s): N40.0 - BENIGN PROSTATIC HYPERPLASIA WITHOUT LOWER URINRY TRACT SYMP Status: Acute Current Visit: Yes (2) Acute prostatitis SNOMED Code(s): 72184867 Code(s): N41.0 - ACUTE PROSTATITIS Status: Suspected Current Visit: Yes (3) Right lower lobe pneumonia SNOMED Code(s): 958293569 Code(s): J18.9 - PNEUMONIA, UNSPECIFIED ORGANISM Status: Acute Current Visit: Yes (4) Weakness SNOMED Code(s): 42293775 Code(s): R53.1 - WEAKNESS Status: Acute Current Visit: Yes (5) Chronic back pain SNOMED Code(s): 472266692 Code(s): M54.9 - DORSALGIA, UNSPECIFIED; G89.29 - OTHER CHRONIC PAIN Status: Chronic Current Visit: No Qualifiers: Back pain location: back pain in unspecified location Back pain laterality: unspecified Qualified Code(s): M54.9 - Dorsalgia, unspecified; G89.29 - Other chronic pain (6) GERD (gastroesophageal reflux disease) SNOMED Code(s): 312985553 Code(s): K21.9 - GASTRO-ESOPHAGEAL REFLUX DISEASE WITHOUT ESOPHAGITIS Status: Chronic Current Visit: No - Problem List Review Problem List Initiated/Reviewed/Updated: Yes - My Orders Last 24 Hours: My Active Orders 01/28/20 08:36 bisacodyL [Dulcolax] 10 mg RECTAL DAILY PRN 01/29/20 05:11 BASIC METABOLIC PANEL,BMP [CHEM] AM CBC WITH AUTO DIFF [HEME] AM MAGNESIUM [CHEM] AM 01/30/20 05:11 BASIC METABOLIC PANEL,BMP [CHEM] AM CBC WITH AUTO DIFF [HEME] AM MAGNESIUM [CHEM] AM - Plan Plan:: This 79-year-old male admitted with CAP and possible acute prostatitis 1. CAP, RLL - Levaquin IV 750 mg daily - Continue normal saline at 100 mls/hr - Blood cultures negative - Repeat BC last night due to fevers, pending. - Encourage IS - Oxygen PRN - CT Chest obtained which revealed R lobe pneumonia, continue Levaquin. - repeat COVID negative. 2. KRISTIN - IV fluids and monitor renal function in a.m. - Avoid nephrotoxic medications - Consider removing arredondo in am. 3. Ataxia: - Tremors improved today - PT evaluation and treatment VTE prophylaxis: Heparin CODE STATUS: Full code Dispo: 2 to 3 days
[2020-01-29] MEDS: Heparin Sodium 5,000 Units/ML Vial SUBCUT SCH ×2 (00:36→09:08)
[2020-01-29] MEDS: Acetaminophen 325 MG Tab PO PRN (00:46)
[2020-01-29 06:54] LABS: POTASSIUM,K 4.4 mmol/L (3.5-5.1)
[2020-01-29] MEDS: Levofloxacin/Dextrose 5%-Water 750 MG in Premix Bag 1 BAG IV SCH (09:10)
[2020-01-29 12:08] VITALS: BP 126/71; PULSE 89
--- NOTE | 2020-01-29 14:45 | PCM.DCSUM1 ---
Discharge Summary - Discharge Data Discharge Date: 01/29/20 Discharge Disposition: Home, Self-Care 01 Condition: Stable - Referral to Home Health Primary Care Physician: Cristian Zavaleta MD - Patient Summary/Data Consults: Consultations 01/28/20 13:40 PT Evaluation and Treatment [CONS] Routine Hospital Course: This 79-year-old male with PMH of HLD, ataxia, BPH presented to the ED with concerns of fever chills and weakness that started a week ago. In the ER no leukocytosis was noted hemoglobin 11.1 platelet count 141,000, slight AK I noted with BUN 35 CR 1.6, which is elevated from baseline. X-ray showed possible linear atelectasis or opacities concerning for possible pneumonia abdominal x-ray shows increased stool in mild distention of the colon. No obvious bowel obstruction. He was treated with Rocephin. Vital signs in ER were noted for some tachypnea mild elevation in temperature 100.6 F. He was admitted inpatient for CAP. After admission he was switch to Levaquin due to concerns for possible prostatitis but exam and CT abdomen/pelvis did not find any evidence of prostatitis. CT of the chest reported right middle lobe pneumonia. He was COVID negative. He did have improvement in his symptoms and today he is requesting discharge. He was discharged home to have follow up with Dr. Salazar. - Discharge Plan Prescriptions/Med Rec: levoFLOXacin [Levaquin] 500 mg PO DAILY #7 tab Home Medications: Home Meds RX: Aspirin [Adult Low Dose Aspirin EC] 81 mg PO DAILY 02/10/17 [History] RX: Multivitamin [Multiple Vitamins] 1 tab PO DAILY 02/10/17 [History] RX: Omeprazole 40 mg PO DAILY 02/10/17 [History] RX: Simvastatin [Zocor] 20 mg PO BEDTIME 02/10/17 [History] RX: Hydroxychloroquine [Plaquenil] 200 mg PO BID 01/27/20 [History] levoFLOXacin [Levaquin] 500 mg PO DAILY #7 tab 01/29/20 [Rx] Patient Handouts: Levofloxacin tablets, Community-Acquired Pneumonia, Adult, [id number] Referrals: Cristian Zavaleta MD [Primary Care Provider] - 02/04/20 10:00 am - Discharge Summary/Plan Comment DC Time >30 min.: No - Patient Data Vitals - Most Recent: Last Vital Signs Temp 36.0 C L 01/29/20 11:15 Pulse 89 01/29/20 11:15 Resp 18 01/29/20 11:15 BP 126/71 01/29/20 11:15 Pulse Ox 97 01/29/20 11:43 Weight - Most Recent: 73.482 kg I&O - Last 24 hours: Intake & Output 01/28/20 01/29/20 01/29/20 22:59 06:59 14:59 Intake Total 400 600 Output Total 1050 Balance 400 -450 Lab Results - Last 24 hrs: Laboratory Results - last 24 hr 01/29/20 01/29/20 Range/Units 06:18 06:18 WBC 7.82 (4.0-11.0) K/uL RBC 4.17 L (4.50-5.90) M/uL Hgb 12.5 L (13.0-17.0) g/dL Hct 38.7 (38.0-50.0) % MCV 92.8 (80.0-98.0) fL MCH 30.0 (27.0-32.0) pg MCHC 32.3 (31.0-37.0) g/dL RDW Std Deviation 48.9 (28.0-62.0) fl RDW Coeff of Gillian 14 (11.0-15.0) % Plt Count 148 L (150-400) K/uL MPV 11.10 (7.40-12.00) fL Neut % (Auto) 72.4 (48.0-80.0) % Lymph % (Auto) 13.0 L (16.0-40.0) % [place] % (Auto) 13.9 (0.0-15.0) % Eos % (Auto) 0.6 (0.0-7.0) % Baso % (Auto) 0.1 (0.0-1.5) % Neut # (Auto) 5.7 (1.4-5.7) K/uL Lymph # (Auto) 1.0 (0.6-2.4) K/uL [place] # (Auto) 1.1 H (0.0-0.8) K/uL Eos # (Auto) 0.1 (0.0-0.7) K/uL Baso # (Auto) 0.0 (0.0-0.1) K/uL Nucleated RBC % 0.0 /100WBC Nucleated RBCs # 0 K/uL Sodium 138 (136-148) mmol/L Potassium 4.4 (3.5-5.1) mmol/L Chloride 102 (98-107) mmol/L Carbon Dioxide 25.0 (21.0-32.0) mmol/L BUN 26 H (7.0-18.0) mg/dL Creatinine 1.3 (0.8-1.3) mg/dL Est Cr Clr Drug Dosing 46.79 mL/min Estimated GFR (MDRD) 53.1 ml/min Glucose 112 H (74-106) mg/dL Calcium 8.3 L (8.5-10.1) mg/dL Magnesium 2.2 (1.8-2.4) mg/dL MILAGROS Results - Last 24 hrs: Microbiology 01/27/20 06:40 Aerobic Blood Culture - Preliminary Blood - Venous - Lab Draw NO GROWTH AFTER 2 DAYS Anaerobic Blood Culture - Preliminary NO GROWTH AFTER 2 DAYS 01/27/20 05:50 Aerobic Blood Culture - Preliminary Blood - Venous NO GROWTH AFTER 2 DAYS Anaerobic Blood Culture - Preliminary NO GROWTH AFTER 2 DAYS 01/27/20 22:22 Aerobic Blood Culture - Preliminary Blood - Venous - Lab Draw NO GROWTH AFTER 1 DAY Anaerobic Blood Culture - Preliminary NO GROWTH AFTER 1 DAY 01/27/20 22:10 Aerobic Blood Culture - Preliminary Blood - Venous NO GROWTH AFTER 1 DAY Anaerobic Blood Culture - Preliminary NO GROWTH AFTER 1 DAY Med Orders - Current: Current Medications Acetaminophen (Tylenol) 650 mg PO Q4H PRN PRN Reason: Pain (Mild 1-3)/fever Last Admin: 01/29/20 00:46 Dose: 650 mg Documented by: Bisacodyl (Dulcolax) 10 mg RECTAL DAILY PRN PRN Reason: Constipation Docusate Sodium (Colace) 100 mg PO BID PRN PRN Reason: Constipation Heparin Sodium (Porcine) (Heparin Sodium) 5,000 units SUBCUT Q8H [facility] Last Admin: 01/29/20 09:08 Dose: 5,000 units Documented by: Sodium Chloride (Normal Saline) 1,000 mls @ 100 mls/hr IV Q10H [facility] Last Infusion: 01/29/20 01:00 Dose: Infused Documented by: Levofloxacin/Dextrose 750 mg/ (Premix) 150 mls @ 100 mls/hr IV Q48H [facility] Last Admin: 01/29/20 09:10 Dose: 100 mls/hr Documented by: Ondansetron HCl (Zofran) 4 mg IVPUSH Q4H PRN PRN Reason: Nausea Sodium Chloride (Saline Flush) 2.5 ml FLUSH ASDIRECTED PRN PRN Reason: Keep Vein Open Last Admin: 01/27/20 22:18 Dose: 2.5 ml Documented by: Discontinued Medications Azithromycin (Zithromax) 500 mg PO Q24H [facility] Bisacodyl (Dulcolax) 10 mg RECTAL ONETIME ONE Stop: 01/27/20 12:29 Last Admin: 01/27/20 16:51 Dose: 10 mg Documented by: Ceftriaxone Sodium/Dextrose 1 (gm/ Premix) 50 mls @ 100 mls/hr IV ONETIME ONE Stop: 01/27/20 07:41 Last Admin: 01/27/20 07:40 Dose: 100 mls/hr Documented by: Azithromycin 500 mg/ Sodium (Chloride) 250 mls @ 250 mls/hr IV ONETIME [facility] Ceftriaxone Sodium/Dextrose 1 (gm/ Premix) 50 mls @ 100 mls/hr IV Q24H [facility] Influenza Virus Vaccine (Fluzone High-Dose Quad ) 240 mcg IM .ONCE ONE Stop: 01/27/20 09:01 Sodium Chloride (Saline Flush) 10 ml FLUSH ASDIRECTED PRN PRN Reason: Keep Vein Open Last Admin: 01/27/20 07:40 Dose: 10 ml Documented by: Sodium Chloride (Saline Flush) 2.5 ml FLUSH ASDIRECTED PRN PRN Reason: Keep Vein Open Last Admin: 01/27/20 07:40 Dose: 2.5 ml Documented by:
== END 2020-01-29 15:45 | disposition home or self-care (01) | DRG 194 ==
LOC: MW.ED 05:45 → MW.MS 07:30
PROVIDERS: ADMIT Student in an Organized Health Care Education/Training Program; ATTEND Internal Medicine
DX: J18.9 Pneumonia, unspecified organism (principal); N41.0 Acute prostatitis; N17.9 Acute kidney failure, unspecified; E78.5 Hyperlipidemia, unspecified; N40.0 Benign prostatic hyperplasia without lower urinary tract symptoms; R27.0 Ataxia, unspecified; E78.00 Pure hypercholesterolemia, unspecified; K21.9 Gastro-esophageal reflux disease without esophagitis; M54.9 Dorsalgia, unspecified; Z20.828 Contact with and (suspected) exposure to other viral communicable diseases; G89.29 Other chronic pain; Z79.82 Long term (current) use of aspirin; Z79.899 Other long term (current) drug therapy; Z98.49 Cataract extraction status, unspecified eye
CPT/HCPCS: 36415; 70450; 70450-26; 71045; 71045-26; 71250; 71250-26; 74018; 74018-26; 74176; 74176-26; 80048; 80053; 81001; 82550; 82962; 83605; 83735; 84100; 84484; 85025; 87040; 93005; 93010; 97161-GP; 97530-GP; 99222; 99232; 99238; 99285; 99285-25; A9270-GY; J0696; J1644; J1956; J7030; U0002

== ENCOUNTER 2020-07-06 11:06 | Day surgery (SDC) | payer MEDICARE, OTHER ==
[2020-07-06] MEDS ORDERED: Betamethasone Acetate/Betamethasone Sod Phosphate 30 MG/5 ML MDV EPIDUR ONE (12:00)
[2020-07-06] MEDS ORDERED: Lidocaine 2% 5 ML SDV INJECT ONE (12:00)
[2020-07-06] MEDS ORDERED: Iopamidol 200-M 10 ML vial ITHECAL ONE (12:00)
[2020-07-06] MEDS ORDERED: Ropivacaine 0.5% 5 MG/ML 30 ML SDV INJECT ONE (12:00)
--- NOTE | 2020-07-06 21:49 | OR ---
SURGEON: Estefania Thomas D.O. DATE OF PROCEDURE: 07/06/2020 PRIMARY SURGEON: Estefania Thomas D.O. SCENE SHIFTER: OR staff present: 1. Kinga Smith RN. 2. Jessica Guzman RT. WOUND CLASS: I. PREOPERATIVE DIAGNOSES: 1. Failed back surgery syndrome. 2. Status post L5-S1 laminectomy. 3. L3-4, L2-3 posterior disk protrusion with radiculopathy. 4. Thoracolumbar scoliosis. 5. Lumbar spondylosis. 6. Chronic pain syndrome. POSTOPERATIVE DIAGNOSES: 1. Failed back surgery syndrome. 2. Status post L5-S1 laminectomy. 3. L3-4, L2-3 posterior disk protrusion with radiculopathy. 4. Thoracolumbar scoliosis. 5. Lumbar spondylosis. 6. Chronic pain syndrome. PROCEDURES PERFORMED: 1. Right transforaminal epidural steroid injection at L2 under fluoroscopy. 2. Right transforaminal epidural steroid injection at L3 under fluoroscopy. 3. Fluoroscopic guidance for needle placement. 4. Local with oral Valium for sedation. SCREENING QUESTIONS: The patient answered "no" to all of the following questions: 1. Are you allergic to iodine, Betadine or latex? 2. Do you have a bleeding disorder? 3. Do you have any joint replacements, heart valve replacements, or a pacemaker? 4. Are you allergic to anti-inflammatories or blood thinners? 5. Do you have any current local or systemic infections? DESCRIPTION OF PROCEDURE: The patient had the procedure thoroughly explained including risks, benefits and alternatives. Consent was signed in my clinic indicating understanding and willingness to proceed. The patient presented to [facility] where the patient was escorted to the dressing room to disrobe and change into a hospital gown. Preoperative vital signs were taken and stable. The patient reported that Valium was taken prior to the procedure. The patient was brought to the procedure room and placed in the prone position on the table. A pillow was placed under the abdomen in order to flatten the lumbar lordosis. The back was prepped with ChloraPrep and sterilely draped. All personnel in the operating room were dressed in appropriate attire including surgical scrubs, head and shoe covers. This was to ensure sterility while in the treatment room. During the time fluoroscopy was in use, all personnel in the operating room wore lead arizmendi with thyroid collars. Sterile technique was used during the procedure. The fluoroscope was placed for the L2 transforaminal epidural steroid injection. There was no sign of infection at the skin site for needle insertion. The skin was anesthetized with 2% lidocaine with a 27 gauge 1-1/2 inch needle. Then a 22 gauge 3-1/2 inch spinal needle, advanced to the L2 foramen. Under direct fluoroscopic guidance needle position was verified in three views; AP, oblique and lateral, with 0.2 cubic centimeters increments of Isovue- 200 dye. No intravascular flow pattern was observed under live fluoroscopy. Then 6 milligrams of Celestone and local was slowly injected after negative aspiration of heme, cerebrospinal fluid and no paresthesias were noted. The needle was cleared prior to removal from the skin. The procedure was repeated as above for the right L3 transforaminal injection. No adverse reactions were noted. The patient was brought to the recovery room awake and in good condition by my staff. The patient was monitored and discharge instructions were given after a brief stay in the recovery area. Both oral and written discharge and follow up instructions were given. The patient will follow up in the clinic in 3-4 weeks post procedure to evaluate the efficacy. The patient verbalized understanding including understanding of those signs and symptoms that would require emergency care and knows how to contact the office if there are any problems or questions in the meantime. PREOPERATIVE PAIN: 6/10. POSTOPERATIVE PAIN: 3/10. FOLLOWUP: In the Pain Clinic in 3 weeks. HOGBHANU / JASIEL /[id number] ERIC
== END 2020-07-06 14:33 ==
LOC: MW.SDS 11:06
PROVIDERS: ATTEND Anesthesiology
DX: G89.4 Chronic pain syndrome (principal); M96.1 Postlaminectomy syndrome, not elsewhere classified; M47.26 Other spondylosis with radiculopathy, lumbar region; M51.26 Other intervertebral disc displacement, lumbar region; E78.00 Pure hypercholesterolemia, unspecified; M43.17 Spondylolisthesis, lumbosacral region; M48.061 Spinal stenosis, lumbar region without neurogenic claudication; M79.18 Myalgia, other site; Z79.82 Long term (current) use of aspirin; Z79.899 Other long term (current) drug therapy; Z98.890 Other specified postprocedural states
CPT/HCPCS: 64483; 64484; J0702; J2795; Q9966